=== PATIENT | male | born 1950 | race Caucasian/White ===

== ENCOUNTER 2016-11-23 06:41 | Inpatient (IN) | payer MEDICARE, OTHER ==
[2016-11-19 13:22] LABS: HEMATOCRIT 46.1 % (40.0-51.0); HEMOGLOBIN 15.1 g/dL (13.6-17.8)
[2016-11-19 13:40] LABS: BUN (BLOOD UREA NITROGEN) 11 MG/DL (6-23); CALCIUM, SERUM 8.7 MG/DL (8.5-10.4); CHLORIDE, SERUM 96 MMOL/L (96-112); CO2 (CARBON DIOXIDE) 28 MMOL/L (24-34); CREATININE 1.08 MG/DL (0.70-1.30); GFR AFRICAN AMERICAN 83 ML/MIN (>=60); GFR NON AFRICAN AMERICAN 72 ML/MIN (>=60); POTASSIUM, SERUM 3.7 MMOL/L (3.5-5.3); SODIUM, SERUM 136 MMOL/L (135-148)
[2016-11-19 13:41] LABS: GLUCOSE, SERUM 135 MG/DL (60-99)
--- NOTE | ~2016-11-23 | DS ---
Discharge Summary [facility] [address] [place]. [address] NAME: STONE LEYVA : 52 STATUS : DIS IN PAT#: [id number] AGE: 66 ADM/REG DATE : 11/23/16 MR#: [id number] REPORT SERV DATE: 12/02/16 DICTATED BY: KY VÁSQUEZ DATE: 12/01/16 REPORT STATUS : Draft TRANSCRIBED BY: JAYY DATE: 12/01/16 Data Collection from hospitalization DISCHARGE DIAGNOSES: 1. Grade 1 spondylolisthesis, L5-S1. 2. Severe disk degeneration, L4-5 and L5-S1. 3. Severe central lateral recess and foraminal stenosis requiring facetectomy L4-5. 4. Iatrogenic instability, L4-5, secondary to severe central lateral recess and foraminal stenosis. 5. Severe foraminal stenosis requiring facetectomy, L5-S1 left, creating instability. 6. Hypertension. 7. Diabetes mellitus type 2. 8. Rheumatoid arthritis. 9. Osteoarthritis. 10.Hypothyroidism. 11.History of depression and anxiety. CONSULTATIONS: None. PROCEDURES PERFORMED: Microscopic navigation assisted surgery of left L4-5 and L5-S1, hemilaminectomy, foraminotomy, facetectomy, transforaminal diskectomy, anterior interbody Capstone cage insertion, posterior lateral interbody fusion with local bone graft, allograft, sacral dome osteotomy of posterior column L5-S1, and finally posterior percutaneous Voyager instrumentation L4-S1, 11/23/2016. PATHOLOGY: Vertebral bone and soft tissue, L4-S1, degenerative changes, no crystals identified. MEDICATIONS: Norvasc 5 mg daily, Wellbutrin XL 150 mg twice daily, Colace 100 mg twice daily, Flonase one spray each nostril daily, Neurontin 600 mg three times daily, hydrochlorothiazide 25 mg daily, Prinivil 2.5 mg at bedtime, Zyrtec 10 mg daily, Robaxin 500 mg every 8 hours, Flexeril 10 mg at bedtime, Prilosec 20 mg daily, Requip 0.25 mg at bedtime, Zocor 20 mg at bedtime, Glucophage 500 mg daily, testosterone cypionate 100 mg IM every two weeks, and oxycodone 5 mg one or two every 4-6 hours as needed. CONDITION AT DISCHARGE: Upon discharge, he did appear to be doing well and had no complaints. His incision looked good. DISPOSITION: He had been discharged home to continue an 1800-calorie ADA diet with activity as discussed. He was to follow up with Carlita Raymond at the [facility] on 12/09/2016. HOSPITAL COURSE: This 66-year-old male was from [facility]. He had had an extensive amount of back pain, left hip, and leg pain. He had had previous spine surgery including a cervical fusion in 2005. He was now having marked pain in the low back into the left leg. Plain x-rays had shown significant advanced lumbar spondylosis, but mostly at L4- 5 and L5-S1 there was a grade 1 spondylolisthesis at both levels. MRI had shown severe central canal stenosis and moderate to severe lateral recess and foraminal stenosis. On the Discharge Summary [address] [place]. [address] NAME: STONE LEYVA : 52 STATUS : DIS IN PAT#: [id number] AGE: 66 ADM/REG DATE : 11/23/16 MR#: [id number] REPORT SERV DATE: 12/02/16 DICTATED BY: KY VÁSQUEZ DATE: 12/01/16 REPORT STATUS : Draft TRANSCRIBED BY: JAYY DATE: 12/01/16 left side, there was severe foraminal stenosis and severe disk degeneration as well. He had failed the usual conservative care and was now admitted for surgery and further treatment. Upon admission to the hospital, he was taken to the operating room where he did undergo the above procedure. He did tolerate this well and was transferred to the recovery room. On postop day one, he did appear to be doing well and had no leg pain noted. He had been placed on oral medications and was evaluated by Physical Therapy. On postop day two, he did continue to do well and had no new complaints. He was given a laxative. On postop day three, he had no leg pain and had been ambulating without difficulty. He was noted to have had some decrease in O2 saturations with pain medications. He was to follow up with his primary care physician regarding his O2 saturation. He did continue to do well and was then discharged with the above instructions. Information collected by: Torito KuhnIPamT. I submit the above information as my discharge summary. RW/MODL Ky Vásquez D.O. / [id number] CC: Ky Vásquez D.O.
--- NOTE | ~2016-11-23 | PREOPHP ---
PreOp History and Physical [facility] [address] [place]. [address] NAME: STONE LEYVA : 52 STATUS : ADM IN PAT#: [id number] AGE: 66 ADM/REG DATE : 11/23/16 MR#: [id number] REPORT SERV DATE: 11/23/16 DICTATED BY: KY VÁSQUEZ DATE: 11/23/16 REPORT STATUS : Draft TRANSCRIBED BY: MODLelo DATE: 11/23/16 CHIEF COMPLAINT: Back pain and left leg pain. HISTORY OF PRESENT ILLNESS: This is a 66-year-old male from the [facility] who has had an extensive amount of back pain, left hip and leg pain. The patient has had previous spine surgery including a cervical fusion in 2005. The patient is now having a marked pain in the low back into the left leg. Plain x-rays show significant advanced lumbar spondylosis but mostly as L4-5 and L5-S1. There is a grade 1 spondylolisthesis at both levels. MRI shows severe central canal stenosis and moderate to severe lateral recess and foraminal stenosis. On the left side, there was severe foraminal stenosis and severe disk degeneration as well. He has failed usual conservative care. He is brought to surgery for a left-sided L4-5 and L5-S1 hemilaminectomy, foraminotomy, facetectomy, transforaminal diskectomy, anterior interbody cage insertion, posterolateral interbody fusion with local bone graft allograft. Posterior percutaneous instrumentation will re-establish stability. At L5-S1, a sacral dome posterior column osteotomy is likely due to the severe collapse of the disk space. I have gone over all the details of the surgery on multiple times with the patient and his family. The risks, benefits, alternatives, and expectations explained. Consent form is signed. Please also note because of the complexity of surgery and the need to identify correct level of surgery intraoperatively as well as desire to carry out the safest and most precise dissection, I feel intraoperative navigation is mandatory. PAST MEDICAL HISTORY: Includes rheumatoid arthritis, osteoarthritis, [id number] diabetes mellitus, hyperthyroidism, depression, hypertension, and anxiety disorder as well as chronic anemia. PAST SURGICAL HISTORY: Skin biopsy and cancer removal, sinus surgery, inguinal herniorrhaphy, and anterior cervical diskectomy and fusion. CURRENT MEDICATIONS: Include amlodipine, BuSpar, cyclobenzaprine, gabapentin, hydrochlorothiazide, lisinopril, meloxicam, metformin, Robaxin, ropinirole, and simvastatin. ALLERGIES: PENICILLIN. SOCIAL HISTORY: He is . Disabled. Has been a former smoker, quit in 2009. Does drink alcohol. Drinks two beers daily five days a week. REVIEW OF SYSTEMS: Denies any current chest pain, pressure, or shortness of breath. Has had no recent alteration in bowel or bladder function. PHYSICAL EXAMINATION: GENERAL: He is 5 feet 11 inches, 205 pounds. BMI is 28.6. He is alert, cooperative, well oriented. Ambulates independently. HEENT: Exam is grossly normal. LUNGS: Clear to auscultation. PreOp History and Physical [address] [address] NAME: STONE LEYVA : 52 STATUS : ADM IN [facility]#: [id number] AGE: 66 ADM/REG DATE : 11/23/16 MR#: [id number] REPORT SERV DATE: 11/23/16 DICTATED BY: KY VÁSQUEZ DATE: 11/23/16 REPORT STATUS : Draft TRANSCRIBED BY: JAYY DATE: 11/23/16 HEART: Rate is regular and rhythmic. ABDOMEN: Soft with good bowel sounds. No peritoneal signs are noted. MUSCULOSKELETAL: The spine itself has some flattening of the lumbar lordosis. There is no pelvic obliquity. There are no pelvic leg length discrepancies. Negative straight leg raising signs. Negative femoral nerve stretch test. Both patella and Achilles reflexes are absent. He has some decreased sensation below the knees bilaterally to light touch and there was also some decrease in vibratory sensation of the feet compatible with a peripheral neuropathy. His motor strengths appear to be grossly intact and normal. His toes are downgoing. No ankle clonus was found. No evidence of myelopathy. Fawn signs are negative. Fabere signs are negative. Orthopedically, he has no pain with movement of hips, knees, or ankles. There are good pulses in all four extremities. No abnormal skin lesions are found. ASSESSMENT AND RECOMMENDATIONS: As listed above. SARAH/JAYY Ky Vásquez D.O. / [id number] CC: Ky Vásquze D.O.
--- NOTE | ~2016-11-23 | OP ---
Record Of Operation [facility] [address] [place]. [address] NAME: STONE LEYVA : 52 STATUS : ADM IN PAT#: [id number] AGE: 66 ADM/REG DATE : 11/23/16 MR#: [id number] REPORT SERV DATE: 11/24/16 DICTATED BY: KY VÁSQUEZ DATE: 11/24/16 REPORT STATUS : Draft TRANSCRIBED BY: MODL DATE: 11/24/16 DATE OF PROCEDURE: 11/23/2016 PREOPERATIVE DIAGNOSES: 1. Grade 1 spondylolisthesis, L5-S1. 2. Severe disk degeneration, L4-5 and L5-S1. 3. Severe central lateral recess and foraminal stenosis requiring facetectomy, L4-5. 4. Iatrogenic instability, L4-5 secondary to severe central lateral recess and foraminal stenosis. 5. Severe foraminal stenosis requiring facetectomy, L5-S1 left, creating instability. POSTOPERATIVE DIAGNOSES: 1. Grade 1 spondylolisthesis, L5-S1. 2. Severe disk degeneration, L4-5 and L5-S1. 3. Severe central lateral recess and foraminal stenosis requiring facetectomy, L4-5. 4. Iatrogenic instability, L4-5 secondary to severe central lateral recess and foraminal stenosis. 5. Severe foraminal stenosis requiring facetectomy, L5-S1 left, creating instability. PROCEDURES: 1. Microscopic navigation assisted surgery. 2. Left L4-5 and L5-S1 hemilaminectomy, foraminotomy, facetectomy, transforaminal diskectomy, anterior interbody Capstone cage insertion, Posterior-lateral interbody fusion with local bone graft allograft. 3. Sacral dome osteotomy of posterior column, L5-S1 and finally posterior percutaneous Voyager instrumentation, L4-S1. SURGEON: Ky Vásquez D.O. CHERRY PICKER OPERATOR: Oracio Lomeli. ANESTHESIA: General. BLOOD LOSS: 100 mL. INDICATION FOR SURGERY: Risks were explained. They are listed in last office note as well as the history and physical. See that for detail. DESCRIPTION OF PROCEDURE: Antibiotic prophylaxis given. Neurophysiology monitoring leads were inserted. The patient was brought to the operative suite. General anesthetic including endotracheal intubation was administered. Guevara catheter was inserted with sterile technique. The patient was placed prone on a Lázaro spine frame. Bony prominences were carefully padded. Thoracolumbar spine was scrubbed with Hibiclens solution. DuraPrep was painted. Sterile drapes applied. Because of the complexity of surgery and the need to identify correct level of surgery Record Of Operation [facility] [address] [place]. [address] NAME: STONE LEYVA : 52 STATUS : ADM IN PAT#: [id number] AGE: 66 ADM/REG DATE : 11/23/16 MR#: [id number] REPORT SERV DATE: 11/24/16 DICTATED BY: KY VÁSQUEZ DATE: 11/24/16 REPORT STATUS : Draft TRANSCRIBED BY: MODL DATE: 11/24/16 intraoperatively as well as desire to carry out the safest and most precise dissection, I felt intraoperative navigation was mandatory. A small stab wound was carried out over the right posterosuperior iliac spine. A percutaneous pin with navigational frame attached was inserted into the PSIS. Intraoperative CT scan with O-arm obtained. CT was information used to register the navigational system. With navigational assistance, I identified L4-5 and L5-S1. Just left of midline, a 5 cm skin incision was carried out. Initially, I started at the inferior portion of the skin incision and I placed a blunt navigated probe through the fascia and muscle and docked over the facet joint of L5-S1. Muscle dilators were inserted followed by placement of a tubular retractor attached to an arm mount table of the microscope. We then sterilely draped and used throughout the remainder of the procedure. With navigational assistance, I identified the top of the pedicle of S1 and anterior pedicle of L5. I dissected from lateral to medial using a combination of a cutting bur, 3 mm and 2 mm lino bur as well as 2 mm Kerrison rongeur. I removed the entire superior articular process of S1 down to the top of the pedicle. I removed the pars interarticularis and the lamina as well as the inferior articular process of L5. The local bone graft was morcellized and later used for fusion. There was a very narrow opening because of the complete collapse of the disk space and the sacral angle. The nerve root of exiting at L5 was very near to the pedicle of S1. For this reason, I carried out a sacral dome osteotomy. I removed the posterior superior portion of the pedicle and endplate of S1 to allow entry into the disk space. Decrease in the sacral and also avoiding impinging on the exiting L5 nerve root. The wound was irrigated and a transforaminal diskectomy was carried out with curettes, rongeurs, and disk patricia. Intradiscal trial was carried out. We determined a 10 mm cage could be placed. The wound was irrigated. The interbody space was packed with a combination of local bone graft, allograft, and extra-small dosage of bone protein. The cage was inserted through the midline into the middle of the interbody space against the anterior longitudinal ligament displacing the bone graft around the cage. Additional posterolateral grafting was carried out afterwards. The retractor was removed. I then moved to the top portion of the skin incision. I placed another blunt navigated probe through the fascia muscle and docked over the L4-5 facet joint. Once again, I carried out the same identical steps as previously mentioned except I did not have to carry out any kind of an osteotomy. I did do a bilateral decompression through unilateral approach from the left side because of the severe central stenosis from ligamentum flavum, hypertrophy, and the lateral recess and foraminal stenosis was resolved by the complete facetectomy. The transforaminal diskectomy was completed. Interbody cage inserted just as previously noted. Finally, after the retractor was removed, I carried out a 5 cm skin incision on the right side just lateral to the facet joint to match that on the left. I then used a percutaneous Voyager pedicle tap and screw carbonizer tester. I tapped the pedicles of L4-5 and S1 bilaterally. Polyaxial Voyager screws were inserted at all three locations bilaterally. A 65 mm contoured lordotic dumbbell sharmila was placed through the top portion of the screw extenders and the sharmila reduced into the tulip of the pedicle screw. Set screw was inserted and tightened with a torque wrench providing rigid stability. Screw craft center director was removed. Record Of Operation [place] [id number] [facility] [place]. [address] NAME: STONE LEYVA : 52 STATUS : ADM IN PAT#: [id number] AGE: 66 ADM/REG DATE : 11/23/16 MR#: [id number] REPORT SERV DATE: 11/24/16 DICTATED BY: KY VÁSQUEZ DATE: 11/24/16 REPORT STATUS : Draft TRANSCRIBED BY: MODL DATE: 11/24/[address] scan with O-arm obtained. CT showed good position of all implants, good gnosticism of disk height, and good position of the hardware. The fascial opening was closed with a single interrupted #1 Vicryl suture, subcutaneous tissue closed with 2-0 Vicryl sutures, and 2-0 vertical mattress nylon suture used for skin closure. Sterile dressings were applied. The patient awakened, extubated, taken to recovery room in satisfactory condition having tolerated procedure well. SARAH/JAYY Ky Vásquez D.O. / [id number] CC: Ky Vásquez D.O.
[~2016-11-23 06:41] MED LIST: FLEX PO; FLONASE NAS; GLUCPH PO; HYDROCHLOROT25 MG PO; METHOC750B PO; MOBIC7.5 PO; MULTI-VIT HP PO; NEUR300 PO; NORV5 PO; PRILO PO; PRIN2.5 PO; REQUIP25 PO; TESTOST CYP100 MG/ML IM; WELLXL150 PO; ZOCOR20 PO; ZYRTEC ALLGY10 MG PO
[2016-11-23 15:59] LABS: CALCIUM, SERUM 7.8 MG/DL (8.5-10.4); CHLORIDE, SERUM 101 MMOL/L (96-112); CO2 (CARBON DIOXIDE) 25 MMOL/L (24-34); SODIUM, SERUM 137 MMOL/L (135-148)
[2016-11-23 16:01] LABS: BASOPHILS 0.2 %; BASOPHILS ABSOLUTE 0.02 10/3/uL (0.0-0.16); BUN (BLOOD UREA NITROGEN) 17 MG/DL (6-23); CREATININE 1.77 MG/DL (0.70-1.30); EOSINOPHILS 0.1 %; EOSINOPHILS ABSOLUTE 0.01 10/3/uL (0.0-0.53); GFR AFRICAN AMERICAN 46 ML/MIN (>=60); GFR NON AFRICAN AMERICAN 39 ML/MIN (>=60); GLUCOSE, SERUM 193 MG/DL (60-99); HEMATOCRIT 42.7 % (40.0-51.0); HEMOGLOBIN 14.2 g/dL (13.6-17.8); IMMATURE GRANULOCYTES 0.9 %; IMMATURE GRANULOCYTES ABSOLUTE 0.12 10/3/uL (0.0-0.11); LYMPHOCYTES 7.9 %; LYMPHOCYTES ABSOLUTE 1.02 10/3/uL (0.67-4.30); MANUAL DIFF NO %; MEAN CORPUS HGB CONC 33.3 g/dL (32.0-36.0); MEAN CORPUSCULAR HEMOGLOB 28.6 pg (26.0-34.0); MEAN CORPUSCULAR VOLUME 86.1 fL (80-100); MEAN PLATELET VOLUME 10.1 fL (9.2-13.0); MONOCYTES 1.6 %; NEUTROPHILS 89.3 %; NEUTROPHILS ABSOLUTE 11.53 10/3/uL (2.02-8.40); PLATELET COUNT 296 10/3/uL (150-400); POTASSIUM, SERUM 4.9 MMOL/L (3.5-5.3); RBC DISTRIBUTION WIDTH 14.5 % (12.0-16.0); RED CELL COUNT 4.96 10/6/uL (4.7-6.1); WHITE BLOOD CELLS 12.9 10/3/uL (4.5-10.5)
[2016-11-24 04:16] LABS: BASOPHILS 0 %; EOSINOPHILS 0 %; HEMOGLOBIN 12.9 g/dL (13.6-17.8); IMMATURE GRANULOCYTES 0.3 %; IMMATURE GRANULOCYTES ABSOLUTE 0.05 10/3/uL (0.0-0.11); LYMPHOCYTES 5.2 %; LYMPHOCYTES ABSOLUTE 0.91 10/3/uL (0.67-4.30); MEAN CORPUS HGB CONC 33.1 g/dL (32.0-36.0); MEAN CORPUSCULAR HEMOGLOB 28.5 pg (26.0-34.0); MEAN CORPUSCULAR VOLUME 86.1 fL (80-100); MEAN PLATELET VOLUME 10.5 fL (9.2-13.0); MONOCYTES 11.4 %; MONOCYTES ABSOLUTE 1.98 10/3/uL (0.21-1.20); NEUTROPHILS 83.1 %; PLATELET COUNT 270 10/3/uL (150-400); RBC DISTRIBUTION WIDTH 14.7 % (12.0-16.0); RED CELL COUNT 4.53 10/6/uL (4.7-6.1); WHITE BLOOD CELLS 17.3 10/3/uL (4.5-10.5)
[2016-11-24 04:17] LABS: MANUAL DIFF NO %
[2016-11-24 04:27] LABS: BUN (BLOOD UREA NITROGEN) 20 MG/DL (6-23); CALCIUM, SERUM 7.4 MG/DL (8.5-10.4); CHLORIDE, SERUM 100 MMOL/L (96-112); CO2 (CARBON DIOXIDE) 26 MMOL/L (24-34); GFR AFRICAN AMERICAN 61 ML/MIN (>=60); GFR NON AFRICAN AMERICAN 52 ML/MIN (>=60); POTASSIUM, SERUM 4.7 MMOL/L (3.5-5.3); SODIUM, SERUM 134 MMOL/L (135-148)
[2016-11-24 04:29] LABS: GLUCOSE, SERUM 147 MG/DL (60-99)
[2016-11-26] MEDS ORDERED: OXYCOD PO (09:43)
[2016-11-26] MEDS ORDERED: METHOC500B PO (09:44)
== END 2016-11-26 15:31 | disposition home or self-care (01) | DRG 460 ==
LOC: SDC/OF 06:41 → PACU 15:20 → 3SO 16:21
PROVIDERS: Orthopaedic Surgery Orthopaedic Surgery of the Spine
PROC: 4A11X4G Monitoring of Peripheral Nervous Electrical Activity, Intraoperative, External Approach (ICD-10-PCS; 2016-11-23)
PROC: 0SG00AJ Fusion of Lumbar Vertebral Joint with Interbody Fusion Device, Posterior Approach, Anterior Column, Open Approach (ICD-10-PCS; principal; 2016-11-23 07:00)
PROC: 0ST20ZZ Resection of Lumbar Vertebral Disc, Open Approach (ICD-10-PCS; 2016-11-23 07:00)
PROC: 0ST40ZZ Resection of Lumbosacral Disc, Open Approach (ICD-10-PCS; 2016-11-23 07:00)
PROC: 0SG30AJ Fusion of Lumbosacral Joint with Interbody Fusion Device, Posterior Approach, Anterior Column, Open Approach (ICD-10-PCS; 2016-11-23 07:00)
DX: M51.37 Other intervertebral disc degeneration, lumbosacral region (principal); I10 Essential (primary) hypertension; E11.9 Type 2 diabetes mellitus without complications
CPT/HCPCS: 36415; 80048; 82962; 85014; 85018; 85025; 86850; 86900; 86901; 87641; 88304; 88311; 93005; 97116-GP; 97161-GP; A9270-GY; C1713; J0690; J1644; J2250; J2270; J2370; J2405; J2710; J2765; J3010; J3480